=== PATIENT | female | born 1960 | race Caucasian/White ===

== ENCOUNTER → 2023-09-11 11:12 | Outpatient (REF) | payer OTHER, SELFPAY | LOC: RAD 11:12 | PROVIDERS: ATTENDING PHYSICIAN Family Medicine | DX: R09.89 Other specified symptoms and signs involving the circulatory and respiratory systems (principal) | CPT/HCPCS: 93880 ==

== ENCOUNTER → 2024-11-26 09:57 | Outpatient (REF) | payer OTHER, SELFPAY | LOC: REG 09:57 | PROVIDERS: ATTENDING PHYSICIAN Family Medicine | DX: M25.559 Pain in unspecified hip (principal); M25.519 Pain in unspecified shoulder | CPT/HCPCS: 73030; 73522 ==